=== PATIENT | male | born 1990 | race Caucasian/White ===

== ENCOUNTER 2018-08-05 20:05 | Emergency (ER) | payer SELFPAY ==
[~2018-08-05] VITALS: Ht 185.4 cm; Wt 114.2 kg
[2018-08-05 20:33] VITALS: BP 185/102; PULSE 111; RESP 18; Ht 185.4 cm; Wt 114.2 kg
== END 2018-08-06 02:56 | disposition left against medical advice (07) ==
LOC: E/R 20:05
DX: Z53.21 Procedure and treatment not carried out due to patient leaving prior to being seen by health care provider (principal)